=== PATIENT | male | born 1995 | race Two or more races ===

== ENCOUNTER 2022-08-21 08:45 | Outpatient (CLI) | payer OTHER | END 2022-08-21 08:46 | disposition home or self-care (01) | LOC: LAB 08:45 | PROVIDERS: ATTEND Obstetrics & Gynecology | DX: Z20.828 Contact with and (suspected) exposure to other viral communicable diseases (principal); Z20.818 Contact with and (suspected) exposure to other bacterial communicable diseases ==

== ENCOUNTER 2023-09-13 12:59 | Emergency (ER) | payer OTHER ==
[~2023-09-13] VITALS: Ht 185.4 cm; Wt 105.2 kg
[2023-09-13 16:13] LABS: HEMATOCRIT 45.9 % (39.0-48.0); MEAN CELL VOLUME 92.5 fL (80.0-100.00); MEAN CORPUSCULAR HEMOGLOBIN 32.3 pg (27.00-32.0); MEAN CORPUSCULAR HGB CONC 34.9 g/dl (32.0-36.0); RED BLOOD COUNT 4.96 M/uL (4.00-6.00); RED CELL DISTRIBUTION WIDTH 12.6 % (11.5-14.5)
[2023-09-13 16:14] LABS: PLATELET COUNT 80 K/uL (150-450)
[2023-09-13 16:31] LABS: CALCIUM 8.4 mg/dL (8.5-10.1); CREATININE SERUM 1.13 mg/dL (0.70-1.30); GFR 78.44; POTASSIUM 3.4 mEq/L (3.5-5.1)
== END 2023-09-13 18:56 | disposition home or self-care (01) ==
LOC: ER 13:00
DX: B34.9 Viral infection, unspecified (principal); Z20.822 Contact with and (suspected) exposure to COVID-19

== ENCOUNTER 2023-09-14 16:19 | Inpatient (IN) | payer OTHER ==
[~2023-09-14] VITALS: Ht 185.4 cm; Wt 105.7 kg
[2023-09-14 18:08] LABS: HEMATOCRIT 47.9 % (39.0-48.0); HEMOGLOBIN 16.8 g/dL (13-16.00); MEAN CELL VOLUME 92.3 fL (80.0-100.00); MEAN CORPUSCULAR HEMOGLOBIN 32.4 pg (27.00-32.0); MEAN CORPUSCULAR HGB CONC 35.1 g/dl (32.0-36.0); RED BLOOD COUNT 5.19 M/uL (4.00-6.00); RED CELL DISTRIBUTION WIDTH 12.5 % (11.5-14.5)
[2023-09-14 18:30] LABS: INR 1.21; PROTHROMBIN TIME 12.5 SECONDS (9.0-11.5)
[2023-09-14 18:44] LABS: ALBUMIN 3.4 gm/dL (3.4-5.0); BILIRUBIN TOTAL 0.59 mg/dL (0.3-1.2); CREATININE SERUM 0.99 mg/dL (0.70-1.30); GFR 91.38; POTASSIUM 3.32 mEq/L (3.5-5.1); TOTAL PROTEIN 7.4 gm/dL (6.4-8.2)
[2023-09-14 19:44] LABS: PLATELET COUNT 20 K/uL (150-450)
[2023-09-15 00:18] LABS: PH,URINE 6.5 (5.0-8.0); URINE APPEARANCE Clear; URINE BILIRRUBIN Negative (NEGATIVE); URINE BLOOD Large; URINE COLOR Dark Yellow; URINE GLUCOSE Negative (NEGATIVE); URINE LEUKOCYTE Negative; URINE NITRATE Negative; URINE PROTEIN >=1000 (NEGATIVE)
[2023-09-15 00:21] LABS: URINE EPITHELIAL CELLS 44.2 uL (0.0-38.8)
[2023-09-15 09:10] LABS: INR 1.12; PARTIAL THROMBOPLASTIN TIME 37.9 SECONDS (22.0-34.0); PROTHROMBIN TIME 11.7 SECONDS (9.0-11.5)
[2023-09-15 09:14] LABS: HEMATOCRIT 47.4 % (39.0-48.0); HEMOGLOBIN 16.7 g/dL (13-16.00); MEAN CELL VOLUME 90.7 fL (80.0-100.00); MEAN CORPUSCULAR HEMOGLOBIN 31.9 pg (27.00-32.0); MEAN CORPUSCULAR HGB CONC 35.1 g/dl (32.0-36.0); RED BLOOD COUNT 5.23 M/uL (4.00-6.00); RED CELL DISTRIBUTION WIDTH 12.9 % (11.5-14.5)
[2023-09-15 10:21] LABS: BILIRUBIN TOTAL 0.45 mg/dL (0.3-1.2); BILIRUBIN,CONJUGATED 0.17 mg/dL (0.0-0.2); BILIRUBIN,UNCONJUGATED 0.28 mg/dL (0.0-0.6); CALCIUM 7.9 mg/dL (8.5-10.1); CREATININE SERUM 0.67 mg/dL (0.70-1.30); GFR 143.38; GLOBULINA 3.9 G/DL (2.4-3.5); POTASSIUM 4.2 mEq/L (3.5-5.1); TOTAL PROTEIN 6.9 gm/dL (6.4-8.2)
[2023-09-15 10:28] LABS: C-REACTIVE PROTEIN 1.19 MG/DL (0.00-0.29); CHOL HDL RATIO 7.6 (0-5.0)
[2023-09-15 11:26] LABS: ERYTHROCYTE SEDIMENTATION RATE 22 mm/hr
[2023-09-15 11:49] LABS: PLATELET COUNT 19 K/uL (150-450)
[2023-09-15 14:37] LABS: URINE APPEARANCE Clear; URINE BILIRRUBIN Negative (NEGATIVE); URINE BLOOD Moderate; URINE COLOR Dark Yellow; URINE GLUCOSE Negative (NEGATIVE); URINE LEUKOCYTE Negative; URINE NITRATE Negative
[2023-09-15 14:38] LABS: URINE BACTERIA 12.5 uL (0.0-1933); URINE EPITHELIAL CELLS 11.8 uL (0.0-38.8); URINE RBC 18.6 uL (0.0-20.8); URINE WBC 8.4 uL (0.0-23.2)
[2023-09-15 15:31] LABS: URINE PROTEIN 300 (NEGATIVE)
[2023-09-16 07:11] LABS: ALBUMIN 3.2 gm/dL (3.4-5.0); BILIRUBIN TOTAL 0.7 mg/dL (0.3-1.2); BILIRUBIN,CONJUGATED 0.33 mg/dL (0.0-0.2); BILIRUBIN,UNCONJUGATED 0.37 mg/dL (0.0-0.6); TOTAL PROTEIN 7.1 gm/dL (6.4-8.2)
[2023-09-16 07:16] LABS: HEMATOCRIT 45.9 % (39.0-48.0); HEMOGLOBIN 16.1 g/dL (13-16.00); MEAN CELL VOLUME 91.9 fL (80.0-100.00); MEAN CORPUSCULAR HEMOGLOBIN 32.3 pg (27.00-32.0); MEAN CORPUSCULAR HGB CONC 35.1 g/dl (32.0-36.0); RED BLOOD COUNT 4.99 M/uL (4.00-6.00); RED CELL DISTRIBUTION WIDTH 12.8 % (11.5-14.5)
[2023-09-16 07:56] LABS: PLATELET COUNT 29 K/uL (150-450)
[2023-09-17 06:56] LABS: HEMATOCRIT 44.9 % (39.0-48.0); HEMOGLOBIN 15.8 g/dL (13-16.00); MEAN CELL VOLUME 92.5 fL (80.0-100.00); MEAN CORPUSCULAR HEMOGLOBIN 32.5 pg (27.00-32.0); MEAN CORPUSCULAR HGB CONC 35.1 g/dl (32.0-36.0); RED BLOOD COUNT 4.86 M/uL (4.00-6.00); RED CELL DISTRIBUTION WIDTH 12.5 % (11.5-14.5)
[2023-09-17 07:04] LABS: PLATELET COUNT 67 K/uL (150-450)
[2023-09-18 10:07] LABS: EBV EARLY AG IGG < 9.0 U/mL (0.0-8.9); ebv vca igg > 600.0 U/mL (0.0-17.9); vca igm ab < 36.0 U/mL (0.0-35.9)
[2023-09-18 12:11] LABS: hav igm Negative (Negative); hcv Non Reactive (Non Reactive); hep b c Negative (Negative)
== END 2023-09-17 14:53 | disposition home or self-care (01) | DRG 866 ==
LOC: ER 16:19 → MEDJ 22:31
PROVIDERS: General Practice; Internal Medicine Hematology & Oncology; Internal Medicine Infectious Disease; ADMIT Specialist; ATTEND Specialist
PROC: BW21ZZZ Computerized Tomography (CT Scan) of Abdomen and Pelvis (ICD-10-PCS; principal; 2023-09-14)
DX: A90 Dengue fever [classical dengue] (principal); E86.0 Dehydration; D69.6 Thrombocytopenia, unspecified